=== PATIENT | female | born 1945 | race Caucasian/White ===

== ENCOUNTER 2024-02-17 13:39 | Emergency (ER) | payer MEDICARE, MEDICAID ==
[2024-02-17] MEDS ORDERED: Sodium Chloride 0.9% 10 ML Syringe FLUSH PRN (14:45)
[2024-02-17] MEDS ORDERED: Sodium Chloride 0.9% 2.5 ML Syringe FLUSH PRN (14:45)
[2024-02-17 15:04] LABS: BASOPHILS ABSOLUTE AUTO 0.06 K/uL (0.00-0.20); BASOPHILS PERCENT AUTO 0.3 % (0.0-1.0); EOSINOPHILS ABSOLUTE AUTO 0.08 K/uL (0.00-0.45); EOSINOPHILS PERCENT AUTO 0.5 % (0.0-6.0); HEMATOCRIT 24.8 % (37.0-47.0); HEMOGLOBIN 8.5 g/dL (12.0-16.0); IMMATURE GRAN ABSOLUTE AUTO 0.07 K/uL (0.00-0.05); IMMATURE GRAN PERCENT AUTO 0.4 % (0.0-0.4); LYMPHOCYTES ABSOLUTE AUTO 1.24 K/uL (1.00-4.80); LYMPHOCYTES PERCENT AUTO 7.2 % (24.0-44.0); MEAN CORPUSCULAR HEMOGLOBIN 29.6 pg (28.0-32.0); MEAN CORPUSCULAR HGB CONC 34.3 g/dL (32.0-36.0); MEAN CORPUSCULAR VOLUME 86.4 fL (83.0-99.0); MEAN PLATELET VOLUME 9.7 fL (9.4-12.3); MONOCYTES PERCENT AUTO 8.7 % (0.0-8.0); NEUTROPHILS ABSOLUTE AUTO 14.22 K/uL (1.80-7.70); NEUTROPHILS PERCENT AUTO 82.9 % (41.0-71.0); PLATELET COUNT,PLT 393 K/uL (150-400); RED BLOOD CELL COUNT 2.87 M/uL (4.10-5.30); WHITE BLOOD CELL COUNT,WBC 17.17 K/uL (3.9-11.3)
[2024-02-17 15:36] LABS: LACTIC ACID 1.2 mmol/L (0.4-2.0)
[2024-02-17 15:44] LABS: A/G RATIO 0.7 (0.9-1.6); ALBUMIN 2.6 g/dL (3.4-5.0); BILIRUBIN TOTAL 0.7 mg/dL (0.2-1.0); CALCIUM 8.8 mg/dL (8.5-10.1); CARBON DIOXIDE,CO2 27.8 mmol/L (21.0-32.0); CREATININE 1.5 mg/dL (0.6-1.0); EST CRCL DRUG DOSING (CG) 22.56 mL/min; POTASSIUM,K 4.9 mmol/L (3.5-5.1); PROTEIN TOTAL,TP 6.4 g/dL (6.4-8.2)
[2024-02-17] MEDS: Iopamidol 755 Mg/ML 100 ML Bottle IVPUSH ONE (17:07)
== END 2024-02-17 17:54 | disposition home or self-care (01) ==
LOC: MW.ED 13:39
DX: R10.9 Unspecified abdominal pain (principal); R79.89 Other specified abnormal findings of blood chemistry; Z75.8 Other problems related to medical facilities and other health care; D64.9 Anemia, unspecified; I10 Essential (primary) hypertension; J44.9 Chronic obstructive pulmonary disease, unspecified; F17.210 Nicotine dependence, cigarettes, uncomplicated
CPT/HCPCS: 36415; 74177; 80053; 83605; 83690; 85025; 99284; Q9967

== ENCOUNTER 2024-02-19 16:54 | Emergency (ER) | payer MEDICARE, MEDICAID ==
[2024-02-19 17:18] LABS: HEMATOCRIT 21.5 % (37.0-47.0); HEMOGLOBIN 7.2 g/dL (12.0-16.0); MEAN CORPUSCULAR HEMOGLOBIN 28.8 pg (28.0-32.0); MEAN CORPUSCULAR HGB CONC 33.5 g/dL (32.0-36.0); MEAN PLATELET VOLUME 9.6 fL (9.4-12.3); PLATELET COUNT,PLT 447 K/uL (150-400)
[2024-02-19] MEDS ORDERED: Sodium Chloride 0.9% 2.5 ML Syringe FLUSH PRN (17:31)
[2024-02-19] MEDS ORDERED: Sodium Chloride 0.9% 10 ML Syringe FLUSH PRN (17:31)
[2024-02-19 17:39] LABS: A/G RATIO 0.6 (0.9-1.6); ALBUMIN 2.4 g/dL (3.4-5.0); BILIRUBIN TOTAL 0.5 mg/dL (0.2-1.0); CALCIUM 8.7 mg/dL (8.5-10.1); CARBON DIOXIDE,CO2 24.2 mmol/L (21.0-32.0); CREATININE 1.5 mg/dL (0.6-1.0); EST CRCL DRUG DOSING (CG) 24.84 mL/min; POTASSIUM,K 4.9 mmol/L (3.5-5.1); PROTEIN TOTAL,TP 6.4 g/dL (6.4-8.2)
[2024-02-19 17:44] LABS: LACTIC ACID 1.1 mmol/L (0.4-2.0)
[2024-02-19 18:00] LABS: LYMPHOCYTES ABSOLUTE MAN 2.07 K/uL (1.00-4.80); LYMPHOCYTES PERCENT MAN 9 % (24-44); MONOCYTES ABSOLUTE MAN 1.38 K/uL (0.00-0.80); MONOCYTES PERCENT MAN 6 % (0-8); SEG NEUTROPHILS ABSOLUTE MAN 19.55 K/uL (1.80-7.70); SEG NEUTROPHILS PERCENT MAN 85 % (41-71)
[2024-02-19] MEDS: Iopamidol 755 Mg/ML 100 ML Bottle IVPUSH STA (18:20)
[2024-02-19 18:22] LABS: ACETAMINOPHEN <2.0 ug/mL; SALICYLATE 3.7 mg/dL (0.0-20.0)
[2024-02-19 18:28] LABS: INR 1.2 (0.86-1.11)
[2024-02-19] MEDS: Pantoprazole 80 MG in Sodium Chloride 0.9% 10 ML IVPUSH ONE (18:49)
[2024-02-19] MEDS: Sodium Chloride 0.9% 1,000 ML IV ONE (18:53)
[2024-02-19] MEDS: Morphine 4 MG/ML Syringe IVPUSH ONE (19:00)
[2024-02-19] MEDS: Ondansetron 4 MG/2 ML SDV IVPUSH ONE ×3 (19:00→19:46)
[2024-02-19] MEDS: Morphine 2 MG/ML SYRINGE IVPUSH ONE (19:02)
[2024-02-19] MEDS: traMADol 50 MG Tab PO ONE (19:15)
[2024-02-19] MEDS: cefTRIAXone 1 GM in Sodium Chloride 0.9% 50 ML IV ONE ×2 (22:04→22:17)
== END 2024-02-19 22:28 ==
LOC: MW.ED 16:54
DX: K92.2 Gastrointestinal hemorrhage, unspecified (principal); J18.9 Pneumonia, unspecified organism; I10 Essential (primary) hypertension; J44.9 Chronic obstructive pulmonary disease, unspecified; Z79.899 Other long term (current) drug therapy; Z75.8 Other problems related to medical facilities and other health care
CPT/HCPCS: 36415; 36430; 71045; 74174; 80053; 80143; 80179; 83605; 83690; 85025; 85610; 96361; 96374; 96375; 99285; A9270; J2405; J2470; J3490; J7030; P9016; Q9967; J0696

== ENCOUNTER 2024-05-18 16:37 | Emergency (ER) | payer MEDICARE, MEDICAID ==
[2024-05-18 17:51] LABS: BASOPHILS ABSOLUTE AUTO 0.07 K/uL (0.00-0.20); BASOPHILS PERCENT AUTO 0.6 % (0.0-1.0); EOSINOPHILS ABSOLUTE AUTO 0.09 K/uL (0.00-0.45); EOSINOPHILS PERCENT AUTO 0.8 % (0.0-6.0); HEMATOCRIT 36.7 % (37.0-47.0); HEMOGLOBIN 12.4 g/dL (12.0-16.0); IMMATURE GRAN ABSOLUTE AUTO 0.03 K/uL (0.00-0.05); IMMATURE GRAN PERCENT AUTO 0.3 % (0.0-0.4); LYMPHOCYTES ABSOLUTE AUTO 1.76 K/uL (1.00-4.80); LYMPHOCYTES PERCENT AUTO 15.9 % (24.0-44.0); MEAN CORPUSCULAR HEMOGLOBIN 28.3 pg (28.0-32.0); MEAN CORPUSCULAR HGB CONC 33.8 g/dL (32.0-36.0); MEAN CORPUSCULAR VOLUME 83.8 fL (83.0-99.0); MEAN PLATELET VOLUME 9.3 fL (9.4-12.3); MONOCYTES ABSOLUTE AUTO 0.86 K/uL (0.00-0.80); MONOCYTES PERCENT AUTO 7.8 % (0.0-8.0); NEUTROPHILS ABSOLUTE AUTO 8.24 K/uL (1.80-7.70); NEUTROPHILS PERCENT AUTO 74.6 % (41.0-71.0); PLATELET COUNT,PLT 348 K/uL (150-400); RED BLOOD CELL COUNT 4.38 M/uL (4.10-5.30); WHITE BLOOD CELL COUNT,WBC 11.05 K/uL (3.9-11.3)
[2024-05-18 18:31] LABS: A/G RATIO 0.9 (0.9-1.6); ALBUMIN 3.3 g/dL (3.4-5.0); BILIRUBIN TOTAL 0.4 mg/dL (0.2-1.0); CALCIUM 9.4 mg/dL (8.5-10.1); CARBON DIOXIDE,CO2 27.1 mmol/L (21.0-32.0); EST CRCL DRUG DOSING (CG) 33.84 mL/min; PROTEIN TOTAL,TP 7.1 g/dL (6.4-8.2)
[2024-05-18] MEDS: Sodium Chloride 0.9% 1,000 ML IV ONE (19:01)
[2024-05-18] MEDS: Ketorolac 30 MG/ML SDV IVPUSH ONE (19:01)
[2024-05-18 19:21] LABS: APPEARANCE,URINE CLEAR; BILIRUBIN,URINE NEGATIVE (NEGATIVE); COLOR,URINE YELLOW; GLUCOSE,URINE NEGATIVE (NEGATIVE); KETONES,URINE NEGATIVE (NEGATIVE); LEUKOCYTE ESTERASE,URINE NEGATIVE (NEGATIVE); NITRITE,URINE NEGATIVE (NEGATIVE); OCCULT BLOOD,URINE NEGATIVE (NEGATIVE); PROTEIN,URINE >=300 mg/dL (NEGATIVE); UROBILINOGEN,URINE 0.2 EU/dL (<2.0)
[2024-05-18] MEDS: Iopamidol 755 MG/ML 500 ML Multipack Bottle IVPUSH ONE (19:25)
[2024-05-18 19:38] LABS: EPITHELIAL CELLS,URINE FEW (NONE-FEW); RBC,URINE 0-1 (0-2/HPF)
[2024-05-18 19:39] LABS: BACTERIA,URINE 1+ (NEGATIVE)
[2024-05-18] MEDS: cefTRIAXone 1 GM in Sodium Chloride 0.9% 50 ML IV ONE (20:43)
== END 2024-05-18 21:14 | disposition home or self-care (01) ==
LOC: MW.ED 16:37
DX: N39.0 Urinary tract infection, site not specified (principal); I10 Essential (primary) hypertension; J44.9 Chronic obstructive pulmonary disease, unspecified; Z75.8 Other problems related to medical facilities and other health care
CPT/HCPCS: 36415; 71045; 74177; 80053; 81001; 83690; 85025; 96361; 96365; 96375; 99284; J0696; J1885; J7030; Q9967; 99283

== ENCOUNTER 2024-05-27 12:36 | Emergency (ER) | payer MEDICARE, MEDICAID ==
[2024-05-27] MEDS ORDERED: Sodium Chloride 0.9% 10 ML Syringe FLUSH PRN (13:19)
[2024-05-27] MEDS ORDERED: Sodium Chloride 0.9% 2.5 ML Syringe FLUSH PRN (13:19)
[2024-05-27 13:52] LABS: BASOPHILS ABSOLUTE AUTO 0.04 K/uL (0.00-0.20); BASOPHILS PERCENT AUTO 0.4 % (0.0-1.0); EOSINOPHILS ABSOLUTE AUTO 0.11 K/uL (0.00-0.45); EOSINOPHILS PERCENT AUTO 1.2 % (0.0-6.0); HEMATOCRIT 36.4 % (37.0-47.0); HEMOGLOBIN 12.3 g/dL (12.0-16.0); IMMATURE GRAN ABSOLUTE AUTO 0.02 K/uL (0.00-0.05); IMMATURE GRAN PERCENT AUTO 0.2 % (0.0-0.4); LYMPHOCYTES ABSOLUTE AUTO 1.52 K/uL (1.00-4.80); LYMPHOCYTES PERCENT AUTO 16.1 % (24.0-44.0); MEAN CORPUSCULAR HEMOGLOBIN 28.3 pg (28.0-32.0); MEAN CORPUSCULAR HGB CONC 33.8 g/dL (32.0-36.0); MEAN CORPUSCULAR VOLUME 83.9 fL (83.0-99.0); MEAN PLATELET VOLUME 9.6 fL (9.4-12.3); MONOCYTES PERCENT AUTO 8.5 % (0.0-8.0); NEUTROPHILS ABSOLUTE AUTO 6.97 K/uL (1.80-7.70); NEUTROPHILS PERCENT AUTO 73.6 % (41.0-71.0); PLATELET COUNT,PLT 325 K/uL (150-400); RED BLOOD CELL COUNT 4.34 M/uL (4.10-5.30); WHITE BLOOD CELL COUNT,WBC 9.46 K/uL (3.9-11.3)
[2024-05-27] MEDS: Ondansetron 4 MG/2 ML SDV IVPUSH STA (13:56)
[2024-05-27] MEDS: Labetalol 100 MG/20 ML MDV IVPUSH STA ×2 (13:56→16:26)
[2024-05-27] MEDS: Morphine 2 MG/ML SYRINGE IVPUSH STA (13:56)
[2024-05-27 14:02] LABS: INR 0.94 (0.86-1.11)
[2024-05-27 14:07] LABS: A/G RATIO 0.8 (0.9-1.6); BILIRUBIN TOTAL 0.4 mg/dL (0.2-1.0); CARBON DIOXIDE,CO2 29.1 mmol/L (21.0-32.0); CREATININE 0.8 mg/dL (0.6-1.0); EST CRCL DRUG DOSING (CG) 42.3 mL/min; POTASSIUM,K 4.7 mmol/L (3.5-5.1)
[2024-05-27] MEDS: Iopamidol 755 MG/ML 500 ML Multipack Bottle IVPUSH STA (15:34)
== END 2024-05-27 16:56 | disposition home or self-care (01) ==
LOC: MW.ED 12:36
DX: R10.30 Lower abdominal pain, unspecified (principal); R91.1 Solitary pulmonary nodule; I10 Essential (primary) hypertension; J44.9 Chronic obstructive pulmonary disease, unspecified; Z75.3 Unavailability and inaccessibility of health-care facilities
CPT/HCPCS: 36415; 71046; 74174; 80053; 83690; 84484; 85025; 85610; 93005; 96374; 96375; 96376; 99284; J1920; J2270; J2405; Q9967; 93010

== ENCOUNTER 2024-05-29 22:26 | Emergency (ER) | payer MEDICARE, MEDICAID ==
[2024-05-29] MEDS: Albuterol/Ipratropium 3.0-0.5 MG/3 ML Neb Soln NEB ONE (22:31)
[2024-05-29] MEDS ORDERED: Sodium Chloride 0.9% 10 ML Syringe FLUSH PRN (22:53)
[2024-05-29] MEDS ORDERED: Sodium Chloride 0.9% 20 ML SDV IV PRN (22:53)
[2024-05-29] MEDS ORDERED: Sodium Chloride 0.9% 2.5 ML Syringe FLUSH PRN (22:53)
[2024-05-29 23:06] LABS: BASOPHILS ABSOLUTE AUTO 0.05 K/uL (0.00-0.20); BASOPHILS PERCENT AUTO 0.4 % (0.0-1.0); EOSINOPHILS ABSOLUTE AUTO 0.03 K/uL (0.00-0.45); EOSINOPHILS PERCENT AUTO 0.2 % (0.0-6.0); HEMATOCRIT 18.1 % (37.0-47.0); HEMOGLOBIN 6.1 g/dL (12.0-16.0); IMMATURE GRAN ABSOLUTE AUTO 0.06 K/uL (0.00-0.05); IMMATURE GRAN PERCENT AUTO 0.5 % (0.0-0.4); LYMPHOCYTES ABSOLUTE AUTO 1.57 K/uL (1.00-4.80); LYMPHOCYTES PERCENT AUTO 11.9 % (24.0-44.0); MEAN CORPUSCULAR HEMOGLOBIN 28.8 pg (28.0-32.0); MEAN CORPUSCULAR HGB CONC 33.7 g/dL (32.0-36.0); MEAN CORPUSCULAR VOLUME 85.4 fL (83.0-99.0); MEAN PLATELET VOLUME 9.8 fL (9.4-12.3); MONOCYTES ABSOLUTE AUTO 0.58 K/uL (0.00-0.80); MONOCYTES PERCENT AUTO 4.4 % (0.0-8.0); NEUTROPHILS ABSOLUTE AUTO 10.87 K/uL (1.80-7.70); NEUTROPHILS PERCENT AUTO 82.6 % (41.0-71.0); PLATELET COUNT,PLT 283 K/uL (150-400); RED BLOOD CELL COUNT 2.12 M/uL (4.10-5.30); WHITE BLOOD CELL COUNT,WBC 13.16 K/uL (3.9-11.3)
[2024-05-29] MEDS: methylPREDNISolone Sodium Succinate 125 MG/2 ML SDV IVPUSH ONE (23:06)
[2024-05-29 23:40] LABS: A/G RATIO 0.9 (0.9-1.6); ALBUMIN 2.5 g/dL (3.4-5.0); BILIRUBIN TOTAL 0.2 mg/dL (0.2-1.0); CALCIUM 8.2 mg/dL (8.5-10.1); CARBON DIOXIDE,CO2 27.2 mmol/L (21.0-32.0); CREATININE 1.1 mg/dL (0.6-1.0); EST CRCL DRUG DOSING (CG) 30.76 mL/min; POTASSIUM,K 4.9 mmol/L (3.5-5.1); PROTEIN TOTAL,TP 5.2 g/dL (6.4-8.2)
[2024-05-30] MEDS: Pantoprazole 80 MG in Sodium Chloride 0.9% 10 ML IVPUSH ONE (00:34)
== END 2024-05-30 03:39 ==
LOC: MW.ED 22:26
DX: D64.9 Anemia, unspecified (principal); K92.1 Melena; K92.2 Gastrointestinal hemorrhage, unspecified; R79.89 Other specified abnormal findings of blood chemistry; J44.9 Chronic obstructive pulmonary disease, unspecified; I10 Essential (primary) hypertension; Z79.51 Long term (current) use of inhaled steroids
CPT/HCPCS: 36415; 71045; 80053; 83690; 83880; 84484; 85018; 85025; 87428; 93005; 93970; 96374; 96375; 99285; A9270; J2470; J2919; 93010

== ENCOUNTER 2024-06-26 23:22 | Emergency (ER) | payer MEDICARE, MEDICAID ==
[2024-06-26] MEDS: Albuterol/Ipratropium 3.0-0.5 MG/3 ML Neb Soln NEB ONE (23:34)
[2024-06-26] MEDS: Nitroglycerin 0.4 MG Tab.SL SL PRN (23:35)
[2024-06-26 23:54] LABS: BASOPHILS ABSOLUTE AUTO 0.07 K/uL (0.00-0.20); BASOPHILS PERCENT AUTO 0.7 % (0.0-1.0); EOSINOPHILS ABSOLUTE AUTO 0.23 K/uL (0.00-0.45); EOSINOPHILS PERCENT AUTO 2.4 % (0.0-6.0); HEMATOCRIT 35.2 % (37.0-47.0); HEMOGLOBIN 11.2 g/dL (12.0-16.0); IMMATURE GRAN ABSOLUTE AUTO 0.03 K/uL (0.00-0.05); IMMATURE GRAN PERCENT AUTO 0.3 % (0.0-0.4); LYMPHOCYTES ABSOLUTE AUTO 2.36 K/uL (1.00-4.80); LYMPHOCYTES PERCENT AUTO 25.1 % (24.0-44.0); MEAN CORPUSCULAR HEMOGLOBIN 28.7 pg (28.0-32.0); MEAN CORPUSCULAR HGB CONC 31.8 g/dL (32.0-36.0); MEAN CORPUSCULAR VOLUME 90.3 fL (83.0-99.0); MEAN PLATELET VOLUME 9.2 fL (9.4-12.3); MONOCYTES ABSOLUTE AUTO 0.93 K/uL (0.00-0.80); MONOCYTES PERCENT AUTO 9.9 % (0.0-8.0); NEUTROPHILS ABSOLUTE AUTO 5.77 K/uL (1.80-7.70); NEUTROPHILS PERCENT AUTO 61.6 % (41.0-71.0); PLATELET COUNT,PLT 324 K/uL (150-400); WHITE BLOOD CELL COUNT,WBC 9.39 K/uL (3.9-11.3)
[2024-06-27 00:25] LABS: A/G RATIO 0.8 (0.9-1.6); ALANINE AMINOTRANSFERASE,ALT 17 IU/L (14-63); ALBUMIN 2.8 g/dL (3.4-5.0); ALKALINE PHOSPHATASE 116 U/L (46-116); ASPARTATE AMNIOTRANSFERASE,AST 18 IU/L (15-37); BILIRUBIN TOTAL 0.2 mg/dL (0.2-1.0); BLOOD UREA NITROGEN,BUN 28 mg/dL (7.0-18.0); CALCIUM 8.7 mg/dL (8.5-10.1); CARBON DIOXIDE,CO2 30.4 mmol/L (21.0-32.0); CHLORIDE,CL 99 mmol/L (98-107); CREATININE 1.1 mg/dL (0.6-1.0); GLUCOSE RANDOM 107 mg/dL (74-106); LIPASE 124 U/L (16-77); MAGNESIUM 1.8 mg/dL (1.8-2.4); POTASSIUM,K 4.7 mmol/L (3.5-5.1); PRO B-TYPE NATRIUR PEPT,BNPPRO 4125 pg/mL (0-450); PROTEIN TOTAL,TP 6.5 g/dL (6.4-8.2); SODIUM,NA 135 mmol/L (136-145)
[2024-06-27 00:26] LABS: ESTIMATED GFR 52 mL/min (>60)
[2024-06-27 00:27] LABS: INR 0.96 (0.86-1.11); PTT,PARTIAL THROMBOPLSTIN TIME 26.5 SEC (23.9-30.7)
== END 2024-06-27 06:00 | disposition home or self-care (01) ==
LOC: MW.ED 23:22
DX: R07.9 Chest pain, unspecified (principal); I10 Essential (primary) hypertension; J44.9 Chronic obstructive pulmonary disease, unspecified; Z79.899 Other long term (current) drug therapy; Z79.84 Long term (current) use of oral hypoglycemic drugs; R79.0 Abnormal level of blood mineral
CPT/HCPCS: 36415; 71045; 80053; 83690; 83735; 83880; 84484; 85025; 85610; 85730; 93005; 99285; A9270; 93010; 99284

== ENCOUNTER 2024-07-29 14:52 | Emergency (ER) | payer MEDICARE, MEDICAID ==
[2024-07-29] MEDS: Nitroglycerin 0.4 MG Tab.SL SL ONE ×2 (15:05→16:13)
[2024-07-29] MEDS: methylPREDNISolone Sodium Succinate 125 MG/2 ML SDV IVPUSH ONE (15:08)
[2024-07-29] MEDS: Albuterol/Ipratropium 3.0-0.5 MG/3 ML Neb Soln NEB ONE ×2 (15:08→15:29)
[2024-07-29] MEDS: cefTRIAXone 2 GM in Water For Injection, Sterile 20 ML IVPUSH ONE (15:11)
[2024-07-29 15:22] LABS: BASOPHILS ABSOLUTE AUTO 0.04 K/uL (0.00-0.20); BASOPHILS PERCENT AUTO 0.3 % (0.0-1.0); EOSINOPHILS ABSOLUTE AUTO 0.01 K/uL (0.00-0.45); EOSINOPHILS PERCENT AUTO 0.1 % (0.0-6.0); HEMATOCRIT 35.9 % (37.0-47.0); HEMOGLOBIN 11.7 g/dL (12.0-16.0); IMMATURE GRAN ABSOLUTE AUTO 0.03 K/uL (0.00-0.05); IMMATURE GRAN PERCENT AUTO 0.3 % (0.0-0.4); LYMPHOCYTES ABSOLUTE AUTO 1.16 K/uL (1.00-4.80); LYMPHOCYTES PERCENT AUTO 10.1 % (24.0-44.0); MEAN CORPUSCULAR HEMOGLOBIN 28.5 pg (28.0-32.0); MEAN CORPUSCULAR HGB CONC 32.6 g/dL (32.0-36.0); MEAN CORPUSCULAR VOLUME 87.3 fL (83.0-99.0); MEAN PLATELET VOLUME 9.1 fL (9.4-12.3); MONOCYTES ABSOLUTE AUTO 0.69 K/uL (0.00-0.80); NEUTROPHILS PERCENT AUTO 83.2 % (41.0-71.0); PLATELET COUNT,PLT 384 K/uL (150-400); RED BLOOD CELL COUNT 4.11 M/uL (4.10-5.30); WHITE BLOOD CELL COUNT,WBC 11.43 K/uL (3.9-11.3)
[2024-07-29 15:24] LABS: PH,VENOUS 7.34 (7.32-7.43)
[2024-07-29 15:25] LABS: BASE EXCESS VENOUS 0.6 (-2.0-3.0)
[2024-07-29] MEDS: Doxycycline 100 MG in Sodium Chloride 0.9% 100 ML IV ONE (15:29)
[2024-07-29 15:37] LABS: INR 1.02 (0.86-1.11); PTT,PARTIAL THROMBOPLSTIN TIME 25.1 SEC (23.9-30.7)
[2024-07-29 16:05] LABS: A/G RATIO 0.7 (0.9-1.6); BILIRUBIN TOTAL 0.4 mg/dL (0.2-1.0); CARBON DIOXIDE,CO2 28.2 mmol/L (21.0-32.0); CREATININE 1.2 mg/dL (0.6-1.0); EST CRCL DRUG DOSING (CG) 28.2 mL/min; MAGNESIUM 1.8 mg/dL (1.8-2.4); POTASSIUM,K 4.2 mmol/L (3.5-5.1); PROTEIN TOTAL,TP 7.1 g/dL (6.4-8.2)
[2024-07-29 16:08] LABS: BASE EXCESS VENOUS -0.5 (-2.0-3.0); PH,VENOUS 7.3 (7.32-7.43)
[2024-07-29] MEDS: Aspirin 81 MG Tab.Chew PO ONE (16:12)
[2024-07-29] MEDS: Furosemide 40 MG/4 ML VIAL IVPUSH ONE ×2 (16:13→17:14)
[2024-07-29 16:40] LABS: BILIRUBIN,URINE NEGATIVE (NEGATIVE); COLOR,URINE YELLOW; GLUCOSE,URINE NEGATIVE (NEGATIVE); KETONES,URINE NEGATIVE (NEGATIVE); LEUKOCYTE ESTERASE,URINE NEGATIVE (NEGATIVE); NITRITE,URINE NEGATIVE (NEGATIVE); OCCULT BLOOD,URINE TRACE-INTACT (NEGATIVE); PROTEIN,URINE >=300 mg/dL (NEGATIVE); UROBILINOGEN,URINE 0.2 EU/dL (<2.0)
[2024-07-29 16:42] LABS: APPEARANCE,URINE HAZY
[2024-07-29 16:46] LABS: SQUAMOUS EPITHELIAL CELLS,UR OCCASIONAL; WBC,URINE 0-2 (0-5/HPF)
[2024-07-29 16:47] LABS: BACTERIA,URINE FEW (NEGATIVE); HYALINE CASTS,URINE 0-1 (0-2/LPF); MUCUS,URINE LIGHT (NONE-MOD)
[2024-07-29] MEDS: Iopamidol 755 MG/ML 500 ML Multipack Bottle IVPUSH STA (18:29)
== END 2024-07-29 18:40 ==
LOC: MW.ED 14:52
DX: J96.01 Acute respiratory failure with hypoxia (principal); J96.02 Acute respiratory failure with hypercapnia; J44.0 Chronic obstructive pulmonary disease with (acute) lower respiratory infection; J18.9 Pneumonia, unspecified organism; J44.1 Chronic obstructive pulmonary disease with (acute) exacerbation; I11.0 Hypertensive heart disease with heart failure; I49.3 Ventricular premature depolarization; I50.9 Heart failure, unspecified; R79.89 Other specified abnormal findings of blood chemistry; Z79.899 Other long term (current) drug therapy; Z79.51 Long term (current) use of inhaled steroids; Z79.01 Long term (current) use of anticoagulants; Z79.84 Long term (current) use of oral hypoglycemic drugs
CPT/HCPCS: 36415; 71045; 71275; 80053; 81001; 82803; 83605; 83735; 83880; 84484; 85025; 85610; 85730; 87040; 87077; 87181; 87184; 87186; 93005; 94640; 94660; A9270; J0696; J1938; J2919; J3490; Q9967; 51702; 93010; 96365; 96375; 96376; 99285; 99285-25